=== PATIENT | male | born 1975 | race Caucasian/White ===

== ENCOUNTER 2019-02-26 07:05 | Outpatient (RCR) | payer SELFPAY ==
--- NOTE | 2019-01-15 09:11 | WPDWOUNDNOTE ---
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 Alexandra. Ulcers on the medial/lateral foot are now completely healed. Now with new wound on the medial dorsal aspect of the hallux with 50% red/pink wound bed and 50% slough. Mild serousanguinous drainage. No signs of acute infection. Wound history: See above Wound approximation: No Wound width: 0.3cm Wound length: 0.3cm Wound depth: 0.3cm Drainage: Mild serousanguinous drainage Surrounding tissue appearance: Mild redness. No warmth/No swelling. Tunneling: No tunneling Percentage granulation tissue: 50% red/pink 50% slough Treatment/Procedures: Debridement performed under sterile conditions with #15 blade knife, tolerated well. Dressings: Begin daily dressing changes with Santyl and foam. Cover dry Assessment and Plan Assessment and plan (1) Diabetic foot ulcer: Qualifiers: Diabetes mellitus type: type 2 Diabetic foot ulcer location: toe Laterality: left Non-pressure ulcer stage: limited to breakdown of skin Qualified Code(s): E11.621 - Type 2 diabetes mellitus with foot ulcer; L97.521 - Non-pressure chronic ulcer of other part of left foot limited to breakdown of skin Code(s): E11.621 - Type 2 diabetes mellitus with foot ulcer; L97.509 - Non-pressure chronic ulcer of other part of unspecified foot with unspecified severity Status: Acute Assessment and Plan: [facility] wound clinic evaluation 6 months s/p left 5th ray amputation and subsequent medial/lateral foot ulcers. Medial/lateral foot ulcers remain completely healed. New ulcer on the medial aspect of the dorsal hallux noted today. Wound measures 0.3x0.3x0.3cm, 50% red/pink wound bed, 50% yellow/slough. Ulcer debrided under sterile conditions with #15 blade knife, tolerated well. Begin daily dressing changes with Santyl and Foam, dry dressing. Patient fit with post op shoe. Modification to custom orthotics/depth shoes given for [employer] in [place]. Follow up in 1 week. Debridement/Burn/Wound Pre Procedure Consent was obtained, Procedures/risks were explained, Questions were answered, Correct patient identified and Correct side and site confirmed Episode Return Visit Area was prepped and draped using sterile technique?: Yes Ulcer/Wound Debridement, skin, first 20 sq cm or less: Yes Dressing Applied antibiotic ointment Post Procedure Patient tolerated the procedure well?: Tolerated procedure well
--- NOTE | 2019-01-22 09:29 | WPDWOUNDNOTE ---
Wound Care Note Date/Time: 01/22/19 09:29 History: [facility] wound clinic visit for follow up of medial/lateral foot ulcers s/p 5th ray amputation on 06/26/[address] Alexandra. Ulcers on the medial/lateral foot remain completely healed. Wound on the medial dorsal aspect of the hallux noted last week now with 100% red/pink wound bed. Mild serousanguinous drainage. No signs of acute infection. Wound approximation: No Percentage granulation tissue: 0.5x0.5x0.2cm, 100% red/pink. Dressings: Transition to silver gel, cover with mepilex foam and cover dry. Assessment and Plan Assessment and plan (1) Diabetic foot ulcer: Qualifiers: Diabetic foot ulcer location: toe Diabetes mellitus type: type 2 Laterality: left Non-pressure ulcer stage: limited to breakdown of skin Qualified Code(s): E11.621 - Type 2 diabetes mellitus with foot ulcer; L97.521 - Non-pressure chronic ulcer of other part of left foot limited to breakdown of skin Code(s): E11.621 - Type 2 diabetes mellitus with foot ulcer; L97.509 - Non-pressure chronic ulcer of other part of unspecified foot with unspecified severity Status: Acute Assessment and Plan: [facility] wound clinic evaluation 6 months s/p left 5th ray amputation and subsequent medial/lateral foot ulcers. Medial/lateral foot ulcers remain completely healed. New ulcer on the medial aspect of the dorsal hallux noted today. Wound measures 0.3x0.3x0.3cm, 50% red/pink wound bed, 50% yellow/slough. Ulcer debrided under sterile conditions with #15 blade knife, tolerated well. Begin daily dressing changes with Santyl and Foam, dry dressing. Patient fit with post op shoe. Modification to custom orthotics/depth shoes given for [employer] in [place]. Follow up in 1 week. Exam Const Constitutional General: cooperative Nutritional Appearance: overweight Orientation/consciousness: oriented x3 Constitutional Limitations: no limitations HENMT Head: normal to inspection Ears: hearing grossly normal bilaterally General nose exam: external nose normal Face and sinus: normal facial exam Mouth: moist mucous membranes Teeth and gingiva: dentition normal Eyes General: appearance normal, both eyes and all related structures Pupils: Yes PERRL EOM: EOM intact bilaterally Neck Neck: Yes normal visual inspection Chest Chest palpation & inspection: normal inspection of the chest Resp Effort & Inspection: normal respiratory effort and able to speak in complete sentences Cardio Jugular venous distension: no JVD Diabetic Foot Exam Date of last foot exam: 01/15/19 Visual inspection of feet performed: Yes Inspection: Yes foot deformity Deformity: pes planus and deformed toes and Yes ulceration (Ulcer on the dorsal aspect of the hallux 0.5x0.5x0.2, 100% red/pink wound b) Peripheral pulse exam performed: Yes Pulses: L dorsalis pedis pulse: diminished, R dorsalis pedis pulse: diminished, L posterior tibial pulse: diminished and R posterior tibial pulse: diminished Sensory exam performed: Yes Monofilament Exam: L medial mid foot: decreased, L lateral mid-foot: decreased, L mid-heel: decreased and L mid-dorsum foot: decreased Diabetic foot care education: provided Review of Systems Const Reports no additional constitutional complaints, Denies excessive sweating, Denies fever(s) and Denies weight gain Eyes Reports no additional eye complaints and Denies change in vision ENT Reports system reviewed and no additional complaints, except as documented and Reports hearing normal Card Denies chest pain, Denies diaphoresis, Denies leg ulcers and Denies dyspnea on exertion Resp Reports no additional respiratory complaints, Denies cough and Denies dyspnea on exertion GI Reports no additional gastrointestinal complaints, Denies abdominal pain, Denies constipation, Denies nausea and Denies vomiting Reports no additional male genitourinary complaints, Denies hematuria and Denies urinary frequency Musc Reports no additional musculoskeletal c
--- NOTE | 2019-02-12 08:53 | WPDWOUNDNOTE ---
Wound Care Note Date/Time: 02/12/19 08:53 [facility] wound clinic visit for follow up of medial/lateral foot ulcers s/p 5th ray amputation on 06/26/[address] Alexandra. Ulcers on the medial/lateral foot remain completely healed. Wound on the medial dorsal aspect of the hallux improving, see notes. Assessment and Plan Assessment and plan (1) Diabetic foot ulcer: Qualifiers: Diabetic foot ulcer location: toe Diabetes mellitus type: type 2 Laterality: left Non-pressure ulcer stage: limited to breakdown of skin Qualified Code(s): E11.621 - Type 2 diabetes mellitus with foot ulcer; L97.521 - Non-pressure chronic ulcer of other part of left foot limited to breakdown of skin Code(s): E11.621 - Type 2 diabetes mellitus with foot ulcer; L97.509 - Non-pressure chronic ulcer of other part of unspecified foot with unspecified severity Status: Acute Assessment and Plan: [facility] wound clinic evaluation 7 months s/p left 5th ray amputation and subsequent medial/lateral foot ulcers. Medial/lateral foot ulcers remain completely healed. Ulcer on the medial aspect of the dorsal hallux now measures 0.2x0.2x0.1cm, 100% red/pink wound bed. Continue daily dressing changes with Silver gel and Foam, dry dressing. Follow up in 2 weeks. Exam Const Constitutional General: cooperative Nutritional Appearance: overweight Orientation/consciousness: oriented x3 Constitutional Limitations: no limitations HENMT Head: normal to inspection Ears: hearing grossly normal bilaterally General nose exam: external nose normal Face and sinus: normal facial exam Mouth: moist mucous membranes Teeth and gingiva: dentition normal Eyes General: appearance normal, both eyes and all related structures Pupils: Yes PERRL EOM: EOM intact bilaterally Neck Neck: Yes normal visual inspection Chest Chest palpation & inspection: normal inspection of the chest Resp Effort & Inspection: normal respiratory effort and able to speak in complete sentences Cardio Jugular venous distension: no JVD Extrem Right lower extremity: foot Details: motor-sensory exam (neuropathy at baseline ) and other (pain with ingrown toenail of hallux); Negative for normal capillary refill, tenderness, warmth and edema Left lower extremity: foot Details: vascular exam (decreased pedal pulses ) Details: abnormal capillary refill (sluggish ) and motor-sensory exam (neuropathy at baseline ) Diabetic Foot Exam Date of last foot exam: 02/12/19 Visual inspection of feet performed: Yes Inspection: Yes foot deformity Deformity: pes planus and deformed toes and Yes ulceration (Ulcer on the dorsal aspect of the hallux 0.2x0.2x0.1cm) Peripheral pulse exam performed: Yes Pulses: L dorsalis pedis pulse: diminished, R dorsalis pedis pulse: diminished, L posterior tibial pulse: diminished and R posterior tibial pulse: diminished Sensory exam performed: Yes Monofilament Exam: L medial mid foot: decreased, L lateral mid-foot: decreased, L mid-heel: decreased and L mid-dorsum foot: decreased Diabetic foot care education: provided
--- NOTE | 2019-02-26 08:43 | WPDWOUNDNOTE ---
Wound Care Note Date/Time: 02/26/19 08:43 [facility] wound clinic visit for follow up of medial/lateral foot ulcers s/p 5th ray amputation on 06/26/[address] Alexandra. Ulcers on the medial/lateral foot remain completely healed. Wound on the medial dorsal aspect of the hallux healed, see notes. Assessment and Plan Assessment and plan (1) Diabetic foot ulcer: Qualifiers: Diabetic foot ulcer location: toe Diabetes mellitus type: type 2 Laterality: left Non-pressure ulcer stage: limited to breakdown of skin Qualified Code(s): E11.621 - Type 2 diabetes mellitus with foot ulcer; L97.521 - Non-pressure chronic ulcer of other part of left foot limited to breakdown of skin Code(s): E11.621 - Type 2 diabetes mellitus with foot ulcer; L97.509 - Non-pressure chronic ulcer of other part of unspecified foot with unspecified severity Status: Acute Assessment and Plan: [facility] wound clinic evaluation approximately 7 months s/p left 5th ray amputation and subsequent medial/lateral foot ulcers. Medial/lateral foot ulcers remain completely healed. Ulcer on the medial aspect of the dorsal hallux completely closed. Continue Foam x1 week. Monitor feet daily for new ulcerations. Continue use of custom orthotics/depth shoes. Follow up in 1 month for foot check Exam Const Constitutional General: cooperative Nutritional Appearance: overweight Orientation/consciousness: oriented x3 Constitutional Limitations: no limitations HENMT Head: normal to inspection Ears: hearing grossly normal bilaterally General nose exam: external nose normal Face and sinus: normal facial exam Mouth: moist mucous membranes Teeth and gingiva: dentition normal Eyes General: appearance normal, both eyes and all related structures Pupils: Yes PERRL EOM: EOM intact bilaterally Neck Neck: Yes normal visual inspection Chest Chest palpation & inspection: normal inspection of the chest Resp Effort & Inspection: normal respiratory effort and able to speak in complete sentences Cardio Jugular venous distension: no JVD Extrem Right lower extremity: foot Details: normal capillary refill, vascular exam Details: dorsalis pedis pulse present and other (ingrown toenail hallux- improving ) and motor-sensory exam Details: two-point discrimination abnormal Location: all toes and light-touch abnormal Location: all toes; Negative for tenderness Left lower extremity: foot Details: vascular exam Details: dorsalis pedis pulse present and motor-sensory exam two-point discrimination abnormal and light-touch abnormal; Negative for tenderness and warmth Other: No open ulcerations bilaterally Diabetic Foot Exam Date of last foot exam: 02/26/19 Visual inspection of feet performed: Yes Inspection: Yes foot deformity and Yes ulceration (Ulcer on the dorsal aspect of the hallux now completely closed ) Peripheral pulse exam performed: Yes Pulses: L dorsalis pedis pulse: diminished, R dorsalis pedis pulse: diminished, L posterior tibial pulse: diminished and R posterior tibial pulse: diminished Sensory exam performed: Yes Monofilament Exam: L medial mid foot: decreased, L lateral mid-foot: decreased, L mid-heel: decreased and L mid-dorsum foot: decreased Diabetic foot care education: provided Review of Systems Const Reports no additional constitutional complaints, Denies excessive sweating, Denies fever(s) and Denies weight gain Eyes Reports no additional eye complaints and Denies change in vision ENT Reports system reviewed and no additional complaints, except as documented and Reports hearing normal Card Denies chest pain, Denies diaphoresis, Denies leg ulcers and Denies dyspnea on exertion Resp Reports no additional respiratory complaints, Denies cough and Denies dyspnea on exertion GI Reports no additional gastrointestinal complaints, Denies abdominal pain, Denies constipation, Denies nausea and Denies vomiting Reports no additional male genitourinary complaints, Denies hematuria and Denie
== END 2019-04-15 23:59 | disposition home or self-care (01) ==
LOC: ANHWOC 07:05
PROVIDERS: Referring Provider Nurse Practitioner Family; Visit Provider Nurse Practitioner Family
DX: E11.621 Type 2 diabetes mellitus with foot ulcer (principal); L97.529 Non-pressure chronic ulcer of other part of left foot with unspecified severity; Z89.422 Acquired absence of other left toe(s)
CPT/HCPCS: 97602; 99212; G0463

== ENCOUNTER 2019-12-07 17:25 | Outpatient (CLI) | payer OTHER, SELFPAY ==
--- NOTE | ~2019-12-07 | MR_ITS ---
EXAMINATION: MR knee RT wo con DATE: 12/07/2019 19:08 INDICATION: Right knee pain TECHNIQUE: Magnetic resonance imaging (MRI) of the right knee was performed without intravenous contr ast. Sequences included coronal PD-weighted FSE, coronal PD-weighted FS FSE, sagittal T2-weighted FS E, sagittal PD-weighted FS FSE and axial PD weighted fat saturated FSE. COMPARISON: Right knee radiographs dated 11/11/2019 FINDINGS: Medial compartment: Medial meniscus is normal. Deep chondral fissuring without degenerative subchondral changes along the anterior to central weightbearing medial femoral condyle. Lateral compartment: Lateral meniscus is normal. Articular cartilage is normal. Patellofemoral compartment: Deep chondral ulceration at the mid inferior trochlear groove and medial side of the lateral patellar facet with subtle underlying subchondral cortical irregularity and mild subarticular edema. Partial- thickness chondral fissure without degenerative subchondral changes at the lateral patellar facet. Ligaments and tendons: Anterior and posterior cruciate ligaments are normal. The medial collateral ligament and fibular ibis ateral ligament complex are normal. The extensor mechanism is normal. The visualized medial and later al hamstring tendons as well as the iliotibial band are normal. Fluid: Physiologic amount of fluid in the joint space. No loose osteochondral bodies identified. Small amoun t of prepatellar fluid most likely residual small hematoma/seroma related to patellar fracture althou gh differential would include prepatellar bursitis. Osseous/other: There is small amount of residual fluid signal extending along a sagittally oriented nondisplaced fra cture plane at the lateral aspect of the patella. No pathologic marrow replacing process. IMPRESSION: 1. Mild residual edema along a subacute nondisplaced fracture at the lateral aspect of the patella. 2. Mild medial and patellofemoral osteoarthritis with moderate to high-grade chondromalacia along the weightbearing medial femoral condyle and lateral patellar facet and high-grade chondromalacia at the trochlear groove and lateral trochlea. 3. Mild prepatellar bursitis. Reviewed, dictated and finalized at location A. IMPRESSION: 1. Mild residual edema along a subacute nondisplaced fracture at the lateral as pect of the patella. 2. Mild medial and patellofemoral osteoarthritis with moderate to high-grade ch ondromalacia along the weightbearing medial femoral condyle and lateral patella r facet and high-grade chondromalacia at the trochlear groove and lateral troch grace. 3. Mild prepatellar bursitis.
== END 2019-12-07 17:26 | disposition home or self-care (01) ==
PROVIDERS: PCP Family Medicine; Visit Provider Nurse Practitioner Family
DX: M70.41 Prepatellar bursitis, right knee (principal)
CPT/HCPCS: 73721

== ENCOUNTER 2020-01-07 16:12 | Emergency (ER) | payer OTHER, SELFPAY ==
--- NOTE | ~2020-01-07 | XR_ITS ---
XR knee LT 3V 01/07/2020 17:41 INDICATION: Left knee pain after fall PROCEDURE: 3 views left knee COMPARISON: No prior studies for comparison. FINDINGS: Fracture, dislocation or subluxation is not identified. Mild osteoarthritis. No significant joint effusion. The soft tissues appear within normal limits. No foreign bodies are identified. IMPRESSION: 1: NO ACUTE BONE OR JOINT ABNORMALITY IDENTIFIED. Reviewed, dictated and finalized at location A.
--- NOTE | ~2020-01-07 | XR_ITS ---
XR ankle RT min 3V, XR ankle LT min 3V 01/07/2020 17:41 (accession [id number]), 01/07/2020 17:40 (accession [id number]) Indication: Bilateral ankle pain after fall Procedure: 4 views of each ankle Comparison: No prior studies for comparison. Findings: Prominent degenerative calcaneal enthesophytes. There are loose bodies superior to the left talonavicular joint consistent with remote trauma or degenerative change. There is heterotopic ossif ication dorsal to the left tibia and fibula. No acute fracture or traumatic malalignment. Ankle morti se intact bilaterally. There is mild right lateral soft tissue swelling. Impression: 1: No acute fracture. Reviewed, dictated and finalized at location A. Impression: 1: No acute fracture. Impression: 1: No acute fracture.
--- NOTE | ~2020-01-07 | XR_ITS ---
XR hand RT min 3V 01/07/2020 17:40 INDICATION: Right hand pain after fall PROCEDURE: 3 views right hand COMPARISON: No prior studies for comparison. FINDINGS: There is a possible nondisplaced longitudinal fracture fifth middle phalanx.. The soft tiss ues appear within normal limits. No foreign bodies are identified. IMPRESSION: 1: Possible nondisplaced longitudinal fracture fifth middle phalanx, seen on oblique image only. Reviewed, dictated and finalized at location A. IMPRESSION: 1: Possible nondisplaced longitudinal fracture fifth middle phalanx, seen on ob lique image only.
--- NOTE | ~2020-01-07 | XR_ITS ---
XR knee RT 3V 01/07/2020 17:40 INDICATION: Right knee pain after fall PROCEDURE: 12/09/2019 COMPARISON: No prior studies for comparison. FINDINGS: Fracture, dislocation or subluxation is not identified. Mild osteoarthritis of the right kn ee. No significant joint effusion. The soft tissues appear within normal limits. No foreign bodies a re identified. IMPRESSION: 1: NO ACUTE BONE OR JOINT ABNORMALITY IDENTIFIED. Reviewed, dictated and finalized at location A.
[2020-01-07 16:14] VITALS: BP 147/104; PULSE 117; RESP 18; TEMP 36; O2SAT 99
--- NOTE | 2020-01-07 17:39 | ED.GENADULT ---
HPI - General Adult General Chief complaint: Extremity Injury, Lower Stated complaint: fall Time Seen by Provider: 01/07/20 16:29 Source: patient and family Mode of arrival: ambulatory Limitations: no limitations History of Present Illness HPI narrative: Patient is a 44-year-old male who presents to emergency department for evaluation of right knee injury that occurred after tripping and falling onto the right knee after rolling the left ankle patient is currently rehabbing for right patellar fracture followed by Dr. Alexandra patient on arrival to emergency department does not appear to be on pain notes he is slightly uncomfortable worse with activity and movement patient with history of peripheral neuropathy denies head injury syncope loss of cough patient does not wish for pain medication at this time Related Data Home Medications Medication Instructions Recorded Confirmed aspirin [Aspirin Low Dose] 81 mg PO DAILY 01/05/19 12/09/19 atorvastatin 40 mg PO DAILY 01/05/19 12/09/19 famotidine [Pepcid] 20 mg PO BID 01/05/19 12/09/19 gabapentin 300 mg PO TID 01/05/19 12/09/19 insulin detemir U-100 45 unit SUBCUT HS 01/05/19 12/09/19 losartan 50 mg PO DAILY 01/05/19 12/09/19 magnesium oxide 400 mg PO DAILY 01/05/19 12/09/19 metformin 500 mg PO BID 01/05/19 12/09/19 Allergies Allergy/AdvReac Type Severity Reaction Status Date / Time latex Allergy Unknown Urticaria Verified 01/07/20 16:17 lisinopril Allergy Unknown unknown Verified 01/07/20 16:17 Review of Systems Review of Systems: All systems reviewed & are unremarkable except as noted in HPI and below PMFSH Past Medical History Medical History (Updated 01/07/20 @ 18:26 by Usman Obregon PA-C) Anxiety Arthritis Depression Diabetes Last A1C as of 11/11/19: 8.1 Diabetic foot ulcer Edema of both feet Headache Hearing loss High cholesterol 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 Hypertension Injury of right knee Kidney disease Left knee pain Nausea & vomiting Neuropathy Patella fracture Poor balance Right knee pain Sleep apnea Sleep disorder Vision abnormalities Wears glasses reading Weight gain Family History Family History Other Diabetes mellitus Family history of arthritis Family history of cardiovascular disease Family history of malignant neoplasm Hypertension Social History Social History Smoking status: Former smoker Smoking end date: 03/10/18 Alcohol intake: never Exam Narrative: Exam Narrative: GENERAL: Well-appearing, well-nourished, and in no acute distress. HEAD: Normocephalic, atraumatic. EYES: PERRLA and EOMI. ENT: Nares clear, no rhinorrhea or epistaxis. Mucous membranes moist. EXTREMITIES: Normal range of motion. No edema. Tenderness of the anterior right knee with abrasion and swelling. No tenderness of the bilateral ankles or left knee. SKIN: Warm, dry, no rash. NEURO: No focal deficits. Alert and oriented x3. Cranial nerves II through XII grossly intact. Neurovascularly intact PSYCH: Normal mood and affect. Course Course Emergency Course: Patient in the room in no distress made aware of skeletal imaging will follow with orthopedic surgery Vital Signs Vital signs: Vital Signs Temperature 96.8 F L 01/07/20 16:14 Pulse Rate 117 H 01/07/20 16:14 Respiratory Rate 18 01/07/20 16:14 Blood Pressure 147/104 H 01/07/20 16:14 Pulse Oximetry 99 01/07/20 16:14 Temperature 96.8 F L 01/07/20 16:14 Pulse Rate 117 H 01/07/20 16:14 Respiratory Rate 18 01/07/20 16:14 Blood Pressure 147/104 H 01/07/20 16:14 Pulse Oximetry 99 01/07/20 16:14 Medical Decision Making MDM Narrative Medical decision making narrative: Patients injury or pain is consistent with musculoskeletal etiology. No signs of neurological or vascular compromise on exam. Compartments and tisues are sof
--- NOTE | 2020-01-15 10:38 | PC.NURSE ---
LATE ENTRY::: Finger splint placed on right middle finger by robotics technician on 01/07/20
== END 2020-01-07 18:47 | disposition home or self-care (01) ==
PROVIDERS: Emergency Provider Emergency Medicine; PCP Family Medicine
DX: S62.656A Nondisplaced fracture of middle phalanx of right little finger, initial encounter for closed fracture (principal); S89.92XA Unspecified injury of left lower leg, initial encounter; S89.91XA Unspecified injury of right lower leg, initial encounter; E78.00 Pure hypercholesterolemia, unspecified; E11.42 Type 2 diabetes mellitus with diabetic polyneuropathy; I10 Essential (primary) hypertension; G47.30 Sleep apnea, unspecified; M19.90 Unspecified osteoarthritis, unspecified site; Z87.891 Personal history of nicotine dependence; Z79.4 Long term (current) use of insulin; Z79.82 Long term (current) use of aspirin; W01.0XXA Fall on same level from slipping, tripping and stumbling without subsequent striking against object, initial encounter
CPT/HCPCS: 29130; 73130; 73562; 73610; 99284

== ENCOUNTER 2020-02-22 11:54 | Outpatient (CLI) | payer OTHER, SELFPAY ==
[2020-02-22 14:05] LABS: Vitamin D 25 Hydroxy 27.5 ng/mL
[2020-02-22 16:14] LABS: T4 Thyroxine 7.05 ug/dL (5.53-11.0)
[2020-02-22 16:28] LABS: Total Triiodothyronine (T3) 1.14 NG/ML (0.97-1.69)
[2020-02-22 17:02] LABS: Folic Acid 15.6 ng/mL (2.76->20)
== END 2020-02-22 11:55 | disposition home or self-care (01) ==
PROVIDERS: PCP Family Medicine
DX: G62.9 Polyneuropathy, unspecified (principal)
CPT/HCPCS: 36415; 82306; 82607; 82746; 84436; 84443; 84480

== ENCOUNTER 2020-03-04 11:43 | Inpatient (IN) | payer OTHER, SELFPAY ==
--- NOTE | ~2020-03-04 | MR_ITS ---
EXAMINATION: MR foot RT wo/w con DATE: 03/05/2020 12:46 INDICATION: Diabetic wounds and swelling at the right foot. TECHNIQUE: Magnetic resonance imaging (MRI) of the right fore/mid foot was performed without and with 20 mL Multihance intravenous contrast. Sequences included axial, sagittal and coronal T1-weighted FS E and T2-weighted FS FSE, axial T1-weighted FS FSE and postcontrast axial and coronal T1-weighted FS FSE. COMPARISON: Radiographs dated 03/04/2020 FINDINGS: Bone alignment is normal. Moderate osteoarthritis at the first metatarsophalangeal and first interpha langeal joints, both with associated small regions of subarticular marrow edema and enhancement. Beryl ow signal is otherwise normal throughout with no fracture, osteolysis or other pathologic marrow repl acing process. Additional mild polyarticular osteoarthritis at the remaining tarsal metatarsal, metat arsophalangeal and interphalangeal joints. Physiologic amount fluid in the joint spaces. No abscess o r other abnormal fluid collections. Prominent subcutaneous edema over the dorsum of the foot. Fatty a trophy and increased fluid signal throughout the intrinsic musculature of the foot likely related to diabetic neuropathy. The flexor and extensor tendons appear normal. The Lisfranc ligament and collate ral ligament complex at the metatarsophalangeal and interphalangeal joints are normal. IMPRESSION: 1. No abscess or osteomyelitis. 2. Polyarticular osteoarthritis, moderate at the first metatarsophalangeal and first interphalangeal joints. Reviewed, dictated and finalized at location A. DEPARTMENT MANAGER
--- NOTE | ~2020-03-04 | XR_ITS ---
XR foot LT min 3V 03/04/2020 15:20 Indication: Infection of the left foot. History of amputated toes. Diabetes. Procedure: 4 views left foot Comparison: 06/23/2018 Findings: Status post amputation of the fifth toe at the metatarsal neck. There is soft tissue swelli ng overlying the fifth toe. There is osteoarthritis of the first MTP and IP joints. Osteopenia. Lisfr anc joint is intact there are vascular calcifications. Prominent degenerative calcaneal spurs. Impression: 1: No acute bone or joint abnormality. If there is concern for osteomyelitis, correlation with MRI or three-phase bone scan recommended. Reviewed, dictated and finalized at location A. SPORT TANK TECHNICIAN Impression: 1: No acute bone or joint abnormality. If there is concern for osteomyelitis, c orrelation with MRI or three-phase bone scan recommended.
--- NOTE | ~2020-03-04 | XR_ITS ---
XR foot RT min 3V 03/04/2020 15:20 Indication: Infection. History of foot ulcers. Procedure: 4 views right foot Comparison: No prior studies for comparison. Findings: No acute fracture, subluxation or dislocation. There is osteoarthritis of the first MTP and IP joints. Lisfranc joint is intact. No erosive changes identified. Vascular calcifications are pres ent. There is soft tissue swelling dorsal aspect of the metatarsal bones. Impression: 1: No acute bone or joint abnormality. If there is concern for osteomyelitis, correlation with MRI or three-phase bone scan recommended. Reviewed, dictated and finalized at location A. ERCIAL DECORATOR Impression: 1: No acute bone or joint abnormality. If there is concern for osteomyelitis, c orrelation with MRI or three-phase bone scan recommended.
--- NOTE | ~2020-03-04 | US_ITS ---
EXAMINATION:US venous doppler LE RT INDICATION:Leg edema TECHNIQUE: Multiple grayscale, color flow and Doppler images of the right lower extremity deep venous systems were obtained and reviewed. COMPARISON:No prior studies for comparison. FINDINGS: The common femoral, superficial femoral and popliteal veins demonstrate normal respiratory variation, augmentation and compressibility. Color flow is also seen within the posterior tibial, pe roneal, greater saphenous and profunda veins. IMPRESSION: 1: No lower extremity deep venous thrombosis. Reviewed, dictated and finalized at location A. IDENT [place]
--- NOTE | ~2020-03-04 | US_ITS ---
EXAMINATION: US art doppler w press LE DATE: 03/05/2020 15:49 WIND DEVELOPMENT DIRECTOR INDICATION: Diabetic foot wound. TECHNIQUE: Segmental pressures and plethysmographic and Doppler waveforms of the brachial and lower e xtremity arteries were obtained. COMPARISON: None. FINDINGS: Right and left brachial artery pressures of 151 mm Hg and 154 mm Hg, respectively, are concordant (no rmal difference <= 30 mmHg). The right ankle-brachial index (CLINTON) is 0.72 (normal >= 0.9-1.0). The right great toe-brachial index (TBI) is 1.05 (normal >= 0.60). The right lower extremity segmental pressure gradients are increased below the right knee (normal gradients <= 20-30 mmHg between adjacent levels on the same leg or the s kyra levels on the two legs). Arterial Doppler waveforms are biphasic. The left CLINTON is 0.95. The left TBI is 0.79 . The left lower extremity segmental pressure gradients ar e increased below the left knee. Arterial Doppler waveforms are biphasic. IMPRESSION: 1. Diminished right ankle brachial index consistent with mild peripheral arterial disease. Reviewed, dictated and finalized at location A. DEVELOPMENT DIRECTOR IMPRESSION: 1. Diminished right ankle brachial index consistent with mild peripheral arteri al disease.
[2020-03-04 11:57] VITALS: BP 149/89; PULSE 104; RESP 16; TEMP 36.7; O2SAT 97
--- NOTE | 2020-03-04 14:21 | ED.WOUNDLAC ---
HPI - Wound/Laceration General Chief Complaint: Wound/Laceration Stated Complaint: foot wounds Time Seen by Provider: 03/04/20 14:21 History of Present Illness HPI narrative: 44 yo male w/ diabetic neuropathy presents to the ED for wounds. He has wounds to multiple toes on the feet bilaterally. First noticed them last night and they have significantly worsened since that time. He says that his checks his feet daily. He reports good glucose control recently. He has severe neuropathy of the feet. No systemic symptoms. h/o left 5th toe amputation. Related Data Home Medications Medication Instructions Recorded Confirmed atorvastatin 40 mg PO DAILY 01/05/19 03/04/20 gabapentin 300 mg PO TID 01/05/19 03/04/20 insulin detemir U-100 50 unit SUBCUT DAILY 01/05/19 03/04/20 losartan 50 mg PO DAILY 01/05/19 03/04/20 Allergies Allergy/AdvReac Type Severity Reaction Status Date / Time latex Allergy Unknown Urticaria Verified 03/04/20 17:38 lisinopril Allergy Unknown unknown Verified 03/04/20 17:38 piperacillin Allergy Chills Verified 03/04/20 17:38 Review of Systems Review of Systems: All systems reviewed & are unremarkable except as noted in HPI and below Constitutional: Constitutional: Denies fever(s) Cardiovascular: Cardiovascular: Denies chest pain Respiratory: Respiratory: Denies dyspnea Gastrointestinal: Gastrointestinal: Denies nausea and Denies vomiting Musculoskeletal: Musculoskeletal: Denies back pain Integumentary/Breasts: Skin/Breast: Reports skin ulcer Neurologic: Reports numbness and Denies weakness [facility] Past Medical History Medical History Amputation of fifth toe of left foot Anxiety Arthritis Depression Diabetic foot ulcer (03/04/20) Diabetic peripheral neuropathy Gastroesophageal reflux disease Hearing loss History of kidney stones Hyperlipidemia Hypertension (Unknown) Insulin dependent type 2 diabetes mellitus Hemoglobin A1c was 8.1% on 11/11/2019. Kidney disease Obstructive sleep apnea Noncompliant with treatment. Osteomyelitis Right patella fracture Surgical History Surgical History 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 History of extraction of renal calculus Family History Family History Mother Acute myocardial infarction Diabetes mellitus Cerebrovascular accident Hypertension Father Acute myocardial infarction Diabetes mellitus Cerebrovascular accident Hypertension Grandparent Diabetes mellitus Colon cancer Hypertension Grandparent Congestive heart failure Other Family history of arthritis Family history of cardiovascular disease Family history of malignant neoplasm Social History Social History Social History: Surrogate decision maker: Ata Workman, . Code status: Full code. Smoking packs per day: 1.5 Smoking cigarettes per day: 30.0 Years smoked: 20 Smoking pack-years: 30.00 Smoking status: Former smoker Tobacco type: cigarettes Smoking end date: 03/10/18 Alcohol intake: never Substance use: never Substance use type: does not use Additional living arrangements comments: Lives in [place] with his . Additional occupation/education comments: Works at the [employer]. Gender identity (if verbalized by the patient): Male Spiritual care concerns: No Exam Const: General: no acute distress and alert Orientation/consciousness: patient oriented x3 HENMT: Head: normal to inspection Neck: Neck: normal visual inspection and no lymphadenopathy Chest: Chest palpation & inspection: no tenderness Resp: Effort & Inspection: normal respiratory effort Auscultation: clear to auscultation bilaterally, no rales, no rhonchi and no wheezes Cardio: Jugular
[2020-03-04 14:48] LABS: Basophils Percent Auto 0.5 % (0.2-1.2); Eosinophils Absolute Auto 0.3 K/mm3 (0-0.3); Eosinophils Percent Auto 3.6 % (0-4.4); Hematocrit 43.5 % (42.0-52.0); Hemoglobin 14.1 g/dL (14.0-18.0); Immature Granulocyte Absolute 0.02 K/mm3 (0.00-0.031); Immature Granulocyte Percent A 0.2 % (0-0.5); Lymphocytes Absolute Auto 2.24 K/mm3 (0.9-3.2); Lymphocytes Percent Auto 26.8 % (18.3-44.2); Mean Corpuscular HGB Conc 32.4 g/dl (32-36); Mean Corpuscular Hemoglobin 29.1 pg (26-34); Mean Corpuscular Volume 89.9 fl (80-100); Mean Platelet Volume 9.6 fl (7.4-10.4); Monocytes Absolute Auto 0.7 K/mm3 (0.1-0.6); Monocytes Percent Auto 8.7 % (2.6-8.5); Neutrophils Percent Auto 60.2 % (45.5-73.1); Platelet Count Result 254 k/mm3 (150-375); Red Blood Count 4.84 M/mm3 (4.6-6.20); Red Cell Distribution Width 12.6 % (11.5-14.5); White Blood Count 8.4 K/mm3 (4.5-10.0)
[2020-03-04 14:57] LABS: INR 0.9; Prothrombin Time 12.6 Seconds (11.1-14.7)
[2020-03-04 14:58] LABS: Partial Thromboplastin Time 25.8 SECONDS (22.3-36.8)
[2020-03-04 14:59] LABS: Lactic Acid Reflex 0.8 mmol/L (0.7-2.1)
[2020-03-04 15:05] LABS: Alanine Aminotransferase 30 U/L (4-50); Albumin Level 3.8 g/dL (3.5-5.1); Alkaline Phosphatase 102 U/L (38-126); Anion Gap 7 mmol/L (8-16); Aspartate Amino Transferase 30 U/L (17-59); Bilirubin,Total 0.5 mg/dL (0.2-1.3); Blood Urea Nitrogen 30 mg/dL (9-20); CRP 1.6 mg/dL (<1.0); Calcium 9.2 mg/dL (8.4-10.2); Carbon Dioxide 33 mmol/L (22-30); Chloride 102 mmol/L (98-107); Estimated CRCL calculation 102 ml/min; Estimated Glomerular Filt Rate > 60; Glucose 53 mg/dL (75-110); Potassium 4.2 mmol/L (3.4-5.0); Sodium 142 mmol/L (137-145)
[2020-03-04 15:10] LABS: Glucose Point of Care 55 (65-105)
[2020-03-04 15:10] LABS: Erythrocyte Sedimentation Rate 35 mm/hr (0-20)
--- NOTE | 2020-03-04 15:18 | PC.NURSE ---
Patient blood glucose noted to be 55, verbal order received to give food/drink to patient.
[2020-03-04 15:53] VITALS: BP 142/92; PULSE 98; RESP 18; O2SAT 98
[2020-03-04 16:52] VITALS: BP 142/98; PULSE 98; RESP 18; O2SAT 98
[2020-03-04 17:08] VITALS: BMI 39.0
--- NOTE | 2020-03-04 17:08 | PC.NURSE ---
This patient, King Workman, was admitted to Medical Room 251-. Patient/family oriented to hospital policies and general routines including ID bracelet, bed and alarms, visiting hours, pain management, procedures, bathroom and other care routines, personal items, smoking policy, room service/diet, and visiting hours. Information on how to activate the Rapid Response Team has been discussed. Patient/Family are encouraged to report perceived risks to care and to ask questions if they do not understand what they are told or what they should do.
[2020-03-04 17:30] VITALS: BP 161/89; PULSE 98; RESP 18; TEMP 36.6; O2SAT 99
--- NOTE | 2020-03-04 19:00 | PM.IMHP ---
H&P: HPI History of Present Illness Date/Time: 03/04/20 19:00 Chief Complaint: Toe wounds. Narrative: King Workman is a 44-year-old male with insulin-dependent type 2 diabetes mellitus, hypertension, and hyperlipidemia presented to the emergency department earlier today from home with complaints of bilateral toe wounds. Patient has a history of diabetic foot wounds and osteomyelitis requiring left 5th toe amputation in June 2018. The patient tells me that his monitors his feet daily, and that today she noticed that his right 1st toe was discolored and there were several areas on multiple toes on both feet with purulent drainage. Both the patient and his are adamant that these were not present yesterday. He suffers from severe peripheral neuropathy and thus he has not had any pain. He does not walk around barefoot and does not recall stubbing or hurting his toe in any way. No fever, chills, or sweats. No nausea or vomiting. He believes his diabetes is well controlled and in fact he has been having some episodes of mild hypoglycemia. Review of Systems Review of Systems: Narrative: Twelve systems were reviewed with pertinent positives and negatives as per HPI. He has poor balance due to his neuropathy and walks with a cane, sometimes a walker. He had a fall at work several months ago and it sounds as though he had a right patellar fracture for which he has completed physical therapy. He has recently been referred to a neurologist in [place] for his severe neuropathy. No blurry vision, polydipsia, or polyuria. Except as documented, all other systems were reviewed and are negative. [facility] Past Medical History Medical History (Updated 03/04/20 @ 22:11 by Zuri Peterson PA-C) Amputation of fifth toe of left foot Anxiety Arthritis Depression Diabetic foot ulcer Diabetic peripheral neuropathy Gastroesophageal reflux disease Hearing loss History of kidney stones Hyperlipidemia Hypertension Insulin dependent type 2 diabetes mellitus Hemoglobin A1c was 8.1% on 11/11/2019. Kidney disease Obstructive sleep apnea Noncompliant with treatment. Osteomyelitis Right patella fracture Surgical History Surgical History (Updated 03/04/20 @ 22:05 by Zuri Peterson PA-C) 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 History of extraction of renal calculus Family History Family History Mother Acute myocardial infarction Diabetes mellitus Cerebrovascular accident Hypertension Father Acute myocardial infarction Diabetes mellitus Cerebrovascular accident Hypertension Grandparent Diabetes mellitus Colon cancer Hypertension Grandparent Congestive heart failure Other Family history of arthritis Family history of cardiovascular disease Family history of malignant neoplasm Social History Social History (Updated 03/04/20 @ 22:06 by Zuri Peterson PA-C) Social History: Surrogate decision maker: Ata Workman, . Code status: Full code. Smoking packs per day: 1.5 Smoking cigarettes per day: 30.0 Years smoked: 20 Smoking pack-years: 30.00 Smoking status: Former smoker Tobacco type: cigarettes Smoking end date: 03/10/18 Alcohol intake: never Substance use: never Substance use type: does not use Additional living arrangements comments: Lives in [place] with his . Additional occupation/education comments: Works at the [employer]. Gender identity (if verbalized by the patient): Male Sexual Orientation (if Verbalized by the Patient): Straight or Heterosexual Spiritual care concerns: No Meds Home Medications and Allergies Home Medications Medication Instructions Recorded Confirmed Type aspirin [Aspirin Low Dose] 162 mg PO DAILY 01/05/19 03/04/20 History atorvastatin 40 mg PO DAILY 01/05/19 03/04/20 History gabapentin 300 mg PO TID 01/05/19 03/04/20 History insulin
[2020-03-04 21:02] LABS: Glucose Point of Care 126 (65-105)
[2020-03-04 21:42] LABS: Hemoglobin A1C 7.5 % (<5.7)
[2020-03-04] MEDS: GABAPENTIN 300 MG CAPSULE PO (21:47)
[2020-03-04 22:00] VITALS: BP 115/73; PULSE 92; RESP 16; TEMP 36.3; O2SAT 99
[2020-03-04 22:22] LABS: Glucose Point of Care 161 (65-105)
[2020-03-05 06:00] VITALS: BP 117/65; PULSE 82; RESP 16; TEMP 36.1; O2SAT 97
[2020-03-05 06:04] LABS: Hematocrit 42.2 % (42.0-52.0); Hemoglobin 13.7 g/dL (14.0-18.0); Mean Corpuscular HGB Conc 32.5 g/dl (32-36); Mean Corpuscular Volume 89.4 fl (80-100); Mean Platelet Volume 9.7 fl (7.4-10.4); Platelet Count Result 218 k/mm3 (150-375); Red Blood Count 4.72 M/mm3 (4.6-6.20); Red Cell Distribution Width 12.5 % (11.5-14.5); White Blood Count 8.3 K/mm3 (4.5-10.0)
[2020-03-05 06:20] LABS: Anion Gap 5 mmol/L (8-16); Blood Urea Nitrogen 26 mg/dL (9-20); Calcium 8.7 mg/dL (8.4-10.2); Carbon Dioxide 32 mmol/L (22-30); Chloride 102 mmol/L (98-107); Estimated CRCL calculation 116 ml/min; Estimated Glomerular Filt Rate > 60; Glucose 131 mg/dL (75-110); Magnesium 1.9 mg/dL (1.6-2.3); Potassium 3.9 mmol/L (3.4-5.0); Sodium 139 mmol/L (137-145)
[2020-03-05] MEDS: GABAPENTIN 300 MG CAPSULE PO ×3 (06:36→21:04)
[2020-03-05 07:35] LABS: Glucose Point of Care 161 (65-105)
[2020-03-05] MEDS: INSULIN DETEMIR 100 UNITS/ML 40 UNITS SUB-Q (09:20)
[2020-03-05] MEDS: ATORVASTATIN 40 MG TABLET PO (09:23)
[2020-03-05] MEDS: ASPIRIN 81 MG ENTERIC TABLET 162 MG PO (09:23)
[2020-03-05] MEDS: LOSARTAN POTASSIUM 50 MG TABLET PO (09:23)
--- NOTE | 2020-03-05 09:59 | PM.IMPN ---
Progress Note: A&P Assessment and Plan (1) Diabetic foot infection: Code(s): E11.628 - Type 2 diabetes mellitus with other skin complications; L08.9 - Local infection of the skin and subcutaneous tissue, unspecified Status: Acute Assessment and Plan: Patient states this started about 2 days ago -will continue vancomycin and imipenem consistent with antibiotic stewardship guidelines -continue glucose control -he is a diabetic with relatively good control A1c 7.5 -x-ray bilaterally did not show any osseous abnormality. -ultrasound of the right lower extremity, MRI of the right foot, and arterial Dopplers have been ordered and are pending -patient sees Dr. Alexandra but is unclear if he is nursing education consultant. It looks like his office was contacted and the nurses going to verify this. If not we can get surgery involved -white blood cell count within normal limits and CRP mildly elevated, no signs of systemic infection at this time. -wound cultures pending (2) Hypoglycemia: Code(s): E16.2 - Hypoglycemia, unspecified Status: Acute Assessment and Plan: Noted on admission -last glucose 161 -continue Lantus but decrease dose -will continue sliding scale insulin at this time and hold his mealtime insulin and adjust as necessary (3) Insulin dependent type 2 diabetes mellitus: Code(s): E11.9 - Type 2 diabetes mellitus without complications; Z79.4 - USP (current) use of insulin Status: Acute Assessment and Plan: See above (4) Hypertension: Code(s): I10 - Essential (primary) hypertension Status: Acute Assessment and Plan: Last blood pressure 117/65 -Continue losartan (5) Hyperlipidemia: Code(s): E78.5 - Hyperlipidemia, unspecified Status: Inactive Assessment and Plan: Chronic -Continue lipitor Time Spent With Patient Time with patient: 25 - 35 minutes Subjective Date/time seen: 03/05/20 09:59 Interval history: Pt is a 44-year-old diabetic here for bilateral foot wounds. Patient was seen today and states he thinks the areas are looking better. He has some pain in the left toe other than that is doing okay. He swears at these came up overnight as his checks his feet every day. He has not had any fevers, chills or other complaints at this time. He specifically denies chest pain, shortness of breath, nausea, vomiting, and diarrhea. His right foot has been swollen since he fell on his knee last month. Review of Systems Review of Systems: All systems reviewed & are unremarkable except as noted in HPI and below Exam Narrative: Exam Narrative: General: Well developed well nourished patient in NAD HEENT: normocephalic Neck: supple Neuro: Alert and oriented x4 CV:RRR Resp:CTA Abd: Soft, non distended. No pain to palpation. Positive bowel sounds Extremities: right foot 1+ edema with dark ulceration to the tip of the toe with the 2nd and 3rd toe having superficial uclers with discharge. left foot great toe has we ulcers that seem shallow with discharge. Pulses are palpable and appear 2+ Objective Data Vital Signs Vital Signs: Vital Signs - 24 hr 03/04/20 11:57 03/04/20 15:53 03/04/20 16:52 Temperature 98.0 F Pulse Rate 104 H 98 98 Respiratory Rate 16 18 18 Blood Pressure 149/89 H 142/92 H 142/98 H Pulse Oximetry 97 98 98 03/04/20 17:30 03/04/20 22:00 03/05/20 06:00 Temperature 97.8 F 97.4 F L 96.9 F L Pulse Rate 98 92 82 Respiratory Rate 18 16 16 Blood Pressure 161/89 H 115/73 117/65 Pulse Oximetry 99 99 97 Intake/Output Intake/Output: Intake & Output 03/02/20 03/03/20 03/04/20 03/05/20 23:59 23:59 23:59 23:59 Intake Total 200 1000 Output Total 500 Balance 200 500 Meds/Results Medications: Active Medications Generic Name Dose Route Start Last Admin Trade Name Maxiq PRN Reason Stop Dose Admin Aspirin 162 mg 03/05/20 09:00 03/05/20 09:23 Aspirin 81 Mg Enteric T
--- NOTE | 2020-03-05 11:55 | PM.CNGS ---
Assessment and Plan Assessment and plan (1) Diabetic foot infection: Onset Date: ~03/04/20 Code(s): E11.628 - Type 2 diabetes mellitus with other skin complications; L08.9 - Local infection of the skin and subcutaneous tissue, unspecified Status: Acute Assessment and Plan: This is the main reason for the patient's admission. He was started on appropriate IV antibiotics after admission. Cultures were obtained from 2 of his infected toes. And I agree with this. Noon will begin dressing changes daily with silver gel and wraps. Patient will be okay to shower. Agree with evaluation of in flow with arterial Dopplers. Patient may need a CT a of the lower extremities to look for specific lesions that could be correctable by a vascular surgeon. (2) Diabetic foot ulcer: Onset Date: 03/04/20 Qualifiers: Diabetes mellitus type: type 2 Diabetic foot ulcer location: toe Laterality: left Non-pressure ulcer stage: limited to breakdown of skin Qualified Code(s): E11.621 - Type 2 diabetes mellitus with foot ulcer; L97.521 - Non-pressure chronic ulcer of other part of left foot limited to breakdown of skin Code(s): E11.621 - Type 2 diabetes mellitus with foot ulcer; L97.509 - Non-pressure chronic ulcer of other part of unspecified foot with unspecified severity Status: Acute Assessment and Plan: There is skin breakdown with superficial ulceration and blistering on the right 1st and 2nd toes and the left 1st toe. Plain x-rays of the feet revealed no signs of bony abnormalities to suggest osteomyelitis. There is some signs of arthritis. (Please see reports ). (3) Hypertension: Onset Date: Unknown Code(s): I10 - Essential (primary) hypertension Status: Acute Assessment and Plan: Blood pressure somewhat elevated upon admission. Hospitalist following this and adjusting meds. (4) Insulin dependent type 2 diabetes mellitus: Code(s): E11.9 - Type 2 diabetes mellitus without complications; Z79.4 - prison (current) use of insulin Status: Acute (5) Poor balance: Onset Date: Unknown Code(s): R26.89 - Other abnormalities of gait and mobility Status: Acute Assessment and Plan: Patient does apparently alternately use a cane or a walker at home. Balance issues are unknown etiology. (6) Right knee pain: Onset Date: ~2019 Qualifiers: Chronicity: acute Qualified Code(s): M25.561 - Pain in right knee Code(s): M25.561 - Pain in right knee Status: Acute Assessment and Plan: Patient wearing a right knee brace. Apparently has had longstanding problems with pain in both knees but more on the right now than the left. Additional Plan Will allow patient to shower Will have nurses start doing daily dressing changes with silver gel then wrap gauze wraps Patient may need to use cast boot to walk with to protect toes. Agree with evaluation and follow-up with the wound Clinic nurses. Await evaluation of inflow by arterial Dopplers to the lower extremities. Will talk pharmacy about possible use of Platel or Trental depending which they have here. (This was discussed with patient as a attempt to improve blood flow to the toes). History of Present Illness Consult details Consult date: 03/05/20 Reason for consult: wound care (Superficial skin breakdown with blistering infection bilateral toes /known diabetic) Narrative: King Workman is a 44-year-old diabetic white disabled male with insulin-dependent type 2 diabetes mellitus, hypertension, and hyperlipidemia who presented to the emergency department yesterday from home with complaints of bilateral toe wounds. Patient has a history of diabetic foot wounds and osteomyelitis requiring left 5th toe amputation in June 2018. The patient tells me that his monitors his feet daily, and that today she noticed that his right 1st toe was discolored and there were sev
[2020-03-05 12:00] LABS: Glucose Point of Care 189 (65-105)
[2020-03-05] MEDS: SILVERGEL (ELTA) 45 ML 1 APPLIC TOPICAL (13:56)
[2020-03-05 14:00] VITALS: BP 118/71; PULSE 101; RESP 18; TEMP 36.2; O2SAT 98
[2020-03-05] MEDS: PENTOXIFYLLINE 400 MG TABCR PO (16:35)
[2020-03-05 16:59] LABS: Glucose Point of Care 161 (65-105)
[2020-03-05 21:07] LABS: Glucose Point of Care 188 (65-105)
[2020-03-05 21:23] VITALS: BP 117/83; PULSE 91; RESP 16; TEMP 36.4; O2SAT 98
[2020-03-06 03:17] LABS: Hematocrit 40.8 % (42.0-52.0); Hemoglobin 13.5 g/dL (14.0-18.0); Mean Corpuscular HGB Conc 33.1 g/dl (32-36); Mean Corpuscular Hemoglobin 29.2 pg (26-34); Mean Corpuscular Volume 88.1 fl (80-100); Mean Platelet Volume 9.6 fl (7.4-10.4); Platelet Count Result 226 k/mm3 (150-375); Red Blood Count 4.63 M/mm3 (4.6-6.20); Red Cell Distribution Width 12.6 % (11.5-14.5); White Blood Count 8.6 K/mm3 (4.5-10.0)
[2020-03-06 03:45] LABS: Anion Gap 7 mmol/L (8-16); Blood Urea Nitrogen 27 mg/dL (9-20); Calcium 8.8 mg/dL (8.4-10.2); Carbon Dioxide 31 mmol/L (22-30); Chloride 99 mmol/L (98-107); Estimated CRCL calculation 72 ml/min; Estimated Glomerular Filt Rate 51; Glucose 172 mg/dL (75-110); Potassium 4.3 mmol/L (3.4-5.0); Sodium 137 mmol/L (137-145)
[2020-03-06 04:36] LABS: Vancomycin Trough 20.4 ug/mL (10.0-20.0)
[2020-03-06] MEDS: GABAPENTIN 300 MG CAPSULE PO ×2 (05:43→14:29)
[2020-03-06 05:45] VITALS: BP 103/56; PULSE 90; RESP 18; TEMP 36.9; O2SAT 95
[2020-03-06 07:55] LABS: Glucose Point of Care 189 (65-105)
[2020-03-06] MEDS: ASPIRIN 81 MG ENTERIC TABLET 162 MG PO (08:56)
[2020-03-06] MEDS: PENTOXIFYLLINE 400 MG TABCR PO ×3 (08:56→18:03)
[2020-03-06] MEDS: LOSARTAN POTASSIUM 50 MG TABLET PO (08:56)
[2020-03-06] MEDS: ATORVASTATIN 40 MG TABLET PO (08:56)
[2020-03-06] MEDS: INSULIN DETEMIR 100 UNITS/ML 40 UNITS SUB-Q (08:57)
--- NOTE | 2020-03-06 09:32 | PM.DS ---
DS: Admitting Diagnosis Admitting Diagnosis Admitting Diagnosis: Diabetic foot wounds DS: Discharge Diagnosis Discharge Diagnosis (1) Diabetic foot infection: Onset Date: ~03/04/20 Code(s): E11.628 - Type 2 diabetes mellitus with other skin complications; L08.9 - Local infection of the skin and subcutaneous tissue, unspecified Status: Acute Assessment and Plan: Patient states this started about 2 days prior to admission -Pt received vancomycin and imipenem while hospitalized and discharged on keflex and doxy -continue glucose control -he is a diabetic with relatively good control A1c 7.5 -x-ray bilaterally did not show any osseous abnormality. -MRI right foot without osteo -No blood clots -CLINTON mildly decreased--plavix started and aspirin stopped. -I called Dr. Goss, his pcp, and he plans to follow these wound since they are superficial. He can refer to grebing if they worsen -silver gel to the left foot with dressings and Betadine to the right -white blood cell count within normal limits and CRP mildly elevated, no signs of systemic infection at this time. - (2) Hypoglycemia: Code(s): E16.2 - Hypoglycemia, unspecified Status: Acute Assessment and Plan: Noted on admission -last glucose 336 but was getting dextrose in his vanc bag during this. His trends ranged from 160-180 -Adjusted home medications but educated him on checking his home glucose more often, especially if he feels bad after meals (3) Insulin dependent type 2 diabetes mellitus: Code(s): E11.9 - Type 2 diabetes mellitus without complications; Z79.4 - termite inspector (current) use of insulin Status: Acute Assessment and Plan: See above (4) Hypertension: Onset Date: Unknown Code(s): I10 - Essential (primary) hypertension Status: Acute Assessment and Plan: Last blood pressure 103/56 -Continue losartan (5) Hyperlipidemia: Code(s): E78.5 - Hyperlipidemia, unspecified Status: Inactive Assessment and Plan: Chronic -Continue lipitor DS: Summary Hospital Course Reason for hospitalization: Diabetic foot wound Hospital Course: Patient is a 24-year-old male with history of diabetes who presented emergency room 03/04/20 bilateral foot wounds. X-ray in the ER did not show any signs of osteomyelitis. White blood cell count was normal and CRP mildly elevated 1.6. Patient was admitted to the hospitalist service and started on imipenem and vancomycin. The patient had ultrasound of the lower extremity which did not show any DVTs in the right leg. He also had ABIs which showed mild peripheral arterial disease. Patient has neuropathy and has constant pain but not necessarily claudication symptoms. His aspirin was stopped and he was started on Plavix for this. He saw the surgery team as well as wound care while here they recommended silver gel and dressings to the left foot and Betadine to the right. Although no systemic infection was suspected, he was discharged on doxycycline and Keflex to finish a 7 day course. His creatinine went up a little bit the day of discharge but could be due to the vancomycin which will be discontinued. He appears euvolemic and is eating and drinking okay. I called his primary care physician and he agreed to follow the patient as they are superficial wounds and has times slots next week for him. The patient sees Dr. Alexandra in the past but I do not think this needs to be followed by an orthopedist or wound care at this time as they are pretty superficial. The patient also mentions that after he eats sometimes he feels very bad. He feels like he has no energy and has to lay down and feels weak and out of it . He has diabetes and he was having hypoglycemia on admission. For this reason I have decreased his insulin to 10 units with meals (he only takes this if glucose is above 120) and told him to check his insulin when h
[2020-03-06] MEDS: SILVERGEL (ELTA) 45 ML 1 APPLIC TOPICAL (11:27)
[2020-03-06] MEDS: INSULIN ASPART (*BKC) 100 UNITS/ML SUB-Q (11:28)
--- NOTE | 2020-03-06 11:37 | PM.PNGS ---
Progress Note: A&P Assessment and Plan (1) Diabetic foot infection: Onset Date: ~03/04/20 Code(s): E11.628 - Type 2 diabetes mellitus with other skin complications; L08.9 - Local infection of the skin and subcutaneous tissue, unspecified Status: Acute Assessment and Plan: Diabetic foot wounds on bilateral feet (Left great toe and right great toe and 2nd toe). Culture obtained from 2 of the infected toes with both preliminary results showing growth of gram positive cocci. Currently on IV antibiotics and would recommend transitioning to oral antibiotics on discharge. Discussed with the Hostpitalist - okay with another week of oral antibiotics. Okay from a surgical standpoint to discharge the patient home today. I discussed wound care instructions with the patient and his today, his agrees to doing the dressing changes. We will do daily dressing changes with betadine applied to the right 1st/2nd toe wounds and cover with gauze. Shower prior to dressing changes daily. Daily dressings with silver gel and mepliex transfer applied to the left great toe wound. He was instructed to wear post-op shoes bilaterally when ambulating and avoid using any type of shoe. Follow-up with Dr. Jain in our office in 1-2 weeks. We will also continue the Pentoxifylline for the next month and discuss length of therapy in his follow-up appt in the office. (2) Diabetic foot ulcer: Onset Date: 03/04/20 Qualifiers: Diabetic foot ulcer location: toe Diabetes mellitus type: type 2 Laterality: left Non-pressure ulcer stage: limited to breakdown of skin Qualified Code(s): E11.621 - Type 2 diabetes mellitus with foot ulcer; L97.521 - Non-pressure chronic ulcer of other part of left foot limited to breakdown of skin Code(s): E11.621 - Type 2 diabetes mellitus with foot ulcer; L97.509 - Non-pressure chronic ulcer of other part of unspecified foot with unspecified severity Status: Acute Assessment and Plan: MRI right foot showed no abscess or osteomyelitis, but there was evidence of polyarticular osteoarthritis, moderate at the first metatarsophalangeal and first interphalangeal joints. No surgical indication at this time. Continue local wound care and close follow-up. Also he needs tight glycemic control for wound healing. Arterial doppler results noted - may consider referral to vascular surgery if he has complications with wound healing, specifically on the right leg (Left CLINTON normal). See plan above. (3) Hypertension: Onset Date: Unknown Code(s): I10 - Essential (primary) hypertension Status: Acute (4) Insulin dependent type 2 diabetes mellitus: Code(s): E11.9 - Type 2 diabetes mellitus without complications; Z79.4 - emt intermediate (current) use of insulin Status: Acute Assessment and Plan: Discussed the importance of glycemic control with wound healing and the infection. (5) Poor balance: Onset Date: Unknown Code(s): R26.89 - Other abnormalities of gait and mobility Status: Acute Assessment and Plan: Patient does apparently alternately use a cane or a walker at home. Balance issues are unknown etiology. Important to take precautions to avoid falls at home since he will be going home on Plavix and Pentoxifylline, he will be at an increased risk of bleeding. (6) Right knee pain: Onset Date: ~2018 Qualifiers: Chronicity: acute Qualified Code(s): M25.561 - Pain in right knee Code(s): M25.561 - Pain in right knee Status: Acute Additional Plan Discussed plan of care with Dr. Jain. Subjective Subjective Date/Time Seen: 03/06/20 09:37 Patient reports: no new complaints and feels better Interval history: Patient feeling well this morning. No new complaints. No pain at this time. I spoke with the patient and his , Ata, on the phone during my evaluation. Review of Systems Review of Systems: All systems review
[2020-03-06 11:57] LABS: Glucose Point of Care 336 (65-105)
[2020-03-06 13:51] VITALS: BP 93/51; PULSE 102; RESP 20; TEMP 36.8; O2SAT 100
--- NOTE | 2020-03-06 14:32 | PC.NURSE ---
call from lab, incorrect tube sent down for UA, will need another specimen, pt made aware
[2020-03-06 16:30] LABS: Add Urine Microscopic? YES; Appearance Urine Clear (Clear); Bilirubin Urine Negative (Negative); Blood Urine Negative (Negative); Color Urine Yellow (Yellow); Glucose Urine UA 3+ mg/dL (Negative); Ketones Urine Negative (Negative); Leukocyte Esterase Ur Trace LEU/UL (Negative); Mucus Urine Rare /lpf; Nitrate Urine Negative (Negative); Protein Urine Negative (Negative); RBC Urine 0-2 /hpf (0-2); Squamous Epithelial Cell Urine Occasional /hpf (Few); Urobilinogen Urine Negative mg/dL (<2.0)
[2020-03-06 16:55] LABS: Glucose Point of Care 162 (65-105)
--- NOTE | 2020-03-13 08:37 | PC.NURSE ---
Urine cx is negative.
--- NOTE | 2020-03-14 09:47 | PC.NURSE ---
Blood cx are negative. Wound cx findings given to ANGELA Haley
== END 2020-03-06 18:44 | disposition home or self-care (01) | DRG 380 ==
LOC: ANHED 14:21 → ANH2MED 19:22
PROVIDERS: Physician Assistant; Admitting Provider Internal Medicine; Emergency Provider Emergency Medicine; PCP Family Medicine; Visit Provider Physician Assistant
DX: E11.628 Type 2 diabetes mellitus with other skin complications (principal); E11.621 Type 2 diabetes mellitus with foot ulcer; L97.521 Non-pressure chronic ulcer of other part of left foot limited to breakdown of skin; L97.519 Non-pressure chronic ulcer of other part of right foot with unspecified severity; L08.9 Local infection of the skin and subcutaneous tissue, unspecified; E11.649 Type 2 diabetes mellitus with hypoglycemia without coma; E11.40 Type 2 diabetes mellitus with diabetic neuropathy, unspecified; E11.51 Type 2 diabetes mellitus with diabetic peripheral angiopathy without gangrene; R26.89 Other abnormalities of gait and mobility; M25.561 Pain in right knee; I10 Essential (primary) hypertension; E78.5 Hyperlipidemia, unspecified; K21.9 Gastro-esophageal reflux disease without esophagitis; G47.33 Obstructive sleep apnea (adult) (pediatric); Z28.21 Immunization not carried out because of patient refusal; Z79.4 Long term (current) use of insulin; Z79.82 Long term (current) use of aspirin; Z87.891 Personal history of nicotine dependence; Z89.422 Acquired absence of other left toe(s)
CPT/HCPCS: 36415; 73630; 73720; 80048; 80053; 80202; 81001; 83036; 83605; 83735; 85025; 85027; 85610; 85652; 85730; 86140; 87040; 87070; 87077; 87086; 87186; 87205; 93923; 93971; 96365; 96367; 99285; A9270; A9577; J0743; J1815; J3370

== ENCOUNTER 2020-03-30 15:53 | Outpatient (CLI) | payer OTHER, SELFPAY ==
[2020-03-30 17:11] LABS: Thyroid Stimulating Hormone 0.915 uIU/mL (0.465-4.680)
[2020-03-30 17:15] LABS: Free T4 Free Thyroxine 0.81 ng/mL (0.78-2.19)
== END 2020-03-30 15:54 | disposition home or self-care (01) ==
LOC: ANHLAB 15:58
PROVIDERS: PCP Family Medicine; Visit Provider Internal Medicine Cardiovascular Disease
DX: R00.2 Palpitations (principal)
CPT/HCPCS: 36415; 84439; 84443

== ENCOUNTER 2020-04-01 10:15 | Emergency (ER) | payer OTHER, SELFPAY ==
[2020-04-01 10:25] VITALS: BP 117/68; PULSE 129; RESP 20; TEMP 36.9; O2SAT 95
--- NOTE | 2020-04-01 10:27 | ED.GENADULT ---
HPI - General Adult General Chief complaint: Upper Respiratory Infection Stated complaint: upper respiratory infection Source: patient Mode of arrival: ambulatory Limitations: no limitations History of Present Illness HPI narrative: 44 y/o male. PMH includes: GERD, HTN, DM II, PVD (on active Plavix anticoagulation), Obesity, KHADAR. Presents to [facility] clinic today with acute complaints of nasal congestion, sore throat, and body aches. He reports family member whom has been ill with similar manifestations in past 1 week. had been exposed to positive Covid co-worker. He is a former smoker. Patient denies fever, chills. No ROMERO, otalgia. Denies cough, chest pain, dyspnea, wheezing, edema. He has not sought out medical evaluation for his illness until now. No additional acute complaints have been relayed upon exam. Related Data Home Medications Medication Instructions Recorded Confirmed atorvastatin 40 mg PO DAILY 01/05/19 03/14/20 gabapentin 300 mg PO TID 01/05/19 03/14/20 insulin detemir U-100 50 unit SUBCUT DAILY 01/05/19 03/14/20 losartan 50 mg PO DAILY 01/05/19 03/14/20 naproxen 250 mg tablet 250 mg PO BID PRN 03/14/20 03/14/20 Allergies Allergy/AdvReac Type Severity Reaction Status Date / Time latex Allergy Unknown Urticaria Verified 03/14/20 10:15 lisinopril Allergy Unknown unknown Verified 03/14/20 10:15 piperacillin Allergy Chills Verified 03/14/20 10:15 Review of Systems Review of Systems: Narrative: CONSTITUTIONAL: Denies fever, chills, sweats. Positive body aches. EYES: Denies visual changes, redness, discharge. ENT: Positive rhinorrhea, congestion, sore throat. No otalgia. CARDIOVASCULAR: Denies chest pain, palpitations, edema. RESPIRATORY: Denies cough. Denies dyspnea, wheezing. GASTROINTESTINAL: Denies abdominal pain, nausea, vomiting, diarrhea. GENITOURINARY: Denies dysuria, hematuria, abnormal discharge SKIN: Denies rash or itching. MUSCULOSKELETAL: Denies acute back pain, joint pain, or myalgia. NEUROLOGIC: Denies numbness, or focal weakness. PSYCHIATRIC: Denies anxiety or depression. 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 Kidney disease Obstructive sleep apnea Noncompliant with treatment. Osteomyelitis Right patella fracture Surgical History Surgical History 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 History of extraction of renal calculus Family History Family History Mother Acute myocardial infarction Diabetes mellitus Cerebrovascular accident Hypertension Father Acute myocardial infarction Diabetes mellitus Cerebrovascular accident Hypertension Grandparent Diabetes mellitus Colon cancer Hypertension Grandparent Congestive heart failure Other Family history of arthritis Family history of cardiovascular disease Family history of malignant neoplasm Social History Social History Social History: Surrogate decision maker: Ata Workman, . Code status: Full code. Smoking packs per day: 1.5 Smoking cigarettes per day: 30.0 Years smoked: 20 Smoking pack-years: 30.00 Smoking status: Former smoker Tobacco type: cigarettes Smoking end date: 03/10/18 Alcohol intake: never Substance use: never Substance use type: does not use Additional living arrangements comments: Lives in [place] with his w
== END 2020-04-01 11:04 | disposition home or self-care (01) ==
PROVIDERS: Emergency Provider Nurse Practitioner Adult Health; PCP Family Medicine
DX: J02.0 Streptococcal pharyngitis (principal); Z20.822 Contact with and (suspected) exposure to COVID-19; M19.90 Unspecified osteoarthritis, unspecified site; E11.42 Type 2 diabetes mellitus with diabetic polyneuropathy; K21.9 Gastro-esophageal reflux disease without esophagitis; E78.5 Hyperlipidemia, unspecified; G47.33 Obstructive sleep apnea (adult) (pediatric); Z91.19 Patient's noncompliance with other medical treatment and regimen; Z89.422 Acquired absence of other left toe(s); E11.51 Type 2 diabetes mellitus with diabetic peripheral angiopathy without gangrene; Z79.4 Long term (current) use of insulin; Z87.891 Personal history of nicotine dependence; Z79.01 Long term (current) use of anticoagulants
CPT/HCPCS: 87426; 87804; 87880; 99213; C9803; G0463

== ENCOUNTER 2020-10-20 13:46 | Outpatient (CLI) | payer OTHER, SELFPAY ==
--- NOTE | 2020-11-15 22:13 | WPDHOMESLEEP ---
Sleep Study - Home Unattended Date of Study: 10/20/20 Ordering Provider: Kaylynn Mcfarlane MD Interpreting Provider: Kaylynn Mcfarlane MD Home Sleep Study Type: Apnea Link Air Height: 1.75 m Weight: 133.81 kg Body Mass Index: 43.5 Neck Circumference (inches): 20 [place]: 7 Reason for Sleep Study Loud snoring Sleep History King Workman is a 45 year man who has loud snoring that frequently disturbed others. He had a diagnosis of obstructive sleep apnea 20 years ago. He frequently has trouble sleeping with a cold. He does not awaken from sleep feeling short of breath. He rarely and awakens at night with heartburn, belching or coughing. He does not gasp for breath at night. He occasionally has breathing problems at night observed by others and occasionally sweats excessively at night. He occasionally notices his heart pounding or beating irregularly at night. He occasionally falls asleep during the day but never falls asleep involuntarily or while driving. He does not have daytime difficulties due to excessive sleepiness. He occasionally feels paralyzed on waking but does not feel paralyzed on falling asleep. He occasionally has vivid dreamlike scenes upon awakening or falling asleep. He does not feel afraid to go to sleep. He occasionally has nightmares. He occasionally remembers his dreams. He occasionally has racing thoughts. He occasionally has feelings of sadness and depression. He constantly has anxiety. He occasionally has muscular tension and notices parts of his body jerking. He does not kick at night. He occasionally has crawling and aching feelings in his legs at night. He frequently has leg pain during the night. He does not have morning jaw pain and does not grind his teeth during sleep. He frequently is bothered by pain during the day, occasionally awakened by pain at night and occasionally wakes up feeling stiff in the morning. He constantly wakes up with sore achy muscles. He does not wake up with pain in the neck and spine. He sometimes has palpitations, nightmares, depression, fatigue and panic. He sometimes has memory problems. Normal bedtime is between 1:00 a.m. and 2:00 a.m., taking a while to fall asleep typically waking 1 or 2 times at night to urinate and play a game on the phone. It takes him sometimes up to 30 minutes or an hour to return to sleep. He wakes up sometime between 8 and 10:00 a.m.. His weekend schedule is the same. He estimates getting between 5 and 6 hours of sleep at night. He sometimes takes naps. A short nap may be refreshing. He is usually drowsy all throughout the day. He feels better in the afternoon compared to other times of day. Habits: Quit tobacco 3 years ago. Caffeine 2 servings a day. No alcohol or recreational drugs. [facility] Past Medical History Medical History (Reviewed 04/13/20 @ 14:08 by Vilma Sunshine 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 Kidney disease Obstructive sleep apnea Noncompliant with treatment. Osteomyelitis Right patella fracture Surgical History Surgical History (Reviewed 04/13/20 @ 14:08 by Vilma Sunshine [facility]) 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 History of extraction of renal calculus Family History Family History (Reviewed 04/13/20 @ 14:08 by Vilma Sunshine [facility]) Mother Acute myocardial infarction Diabetes mellitus Cerebrovascular accident Hypertension Father Acute myocardial infarction Diabetes mellitus Cerebrovascular accident Hypertension Grandparent Diabetes mellitus Colon cancer Hypertension Grandparent Congestive heart failure Other Family history of arthritis Family history of cardiovas
[2020-11-15 22:20] VITALS: BMI 43.5
== END 2020-10-23 14:04 | disposition home or self-care (01) ==
LOC: ANHCSM 10-23 13:46
PROVIDERS: PCP Family Medicine; Visit Provider Internal Medicine Critical Care Medicine
DX: G47.33 Obstructive sleep apnea (adult) (pediatric) (principal)
CPT/HCPCS: 95806

== ENCOUNTER 2021-02-28 07:51 | Outpatient (CLI) | payer OTHER, SELFPAY ==
--- NOTE | 2021-03-19 20:05 | WPDSLEEPSTUD ---
Sleep Study Date of Study: 02/28/21 <Crystal Becker, DO - Last Filed: 03/20/21 14:04> Ordering Provider: Phuc Blount APRN <Crystal Becker, DO - Last Filed: 03/20/21 14:04> Interpreting Physician: Crystal Becker DO <Crystal Becker DO - Last Filed: 03/20/21 14:04> Sleep Study Type: CPAP Titration <Crystal Becker DO - Last Filed: 03/20/21 14:04> Height: 1.75 m <Crystal Becker DO - Last Filed: 03/20/21 14:04> Weight: 138.799 kg <Crystal Becker DO - Last Filed: 03/20/21 14:04> Body Mass Index: 45.1 <Crystal Becker DO - Last Filed: 03/20/21 14:04> Neck Circumference (inches): 19 <Crystal Becker DO - Last Filed: 03/20/21 14:04> [place]: 3 <Crystal Becker DO - Last Filed: 03/20/21 14:04> Reason for Sleep Study The patient had an HSAT done on 10/20/2020 that showed an AHI of 31.1 with desaturation down to 63%. <Crystal Becker DO - Last Filed: 03/20/21 14:04> Sleep History King Workman is a 45 year man who has loud snoring that frequently disturbed others. He had a diagnosis of obstructive sleep apnea 20 years ago. He frequently has trouble sleeping with a cold. He does not awaken from sleep feeling short of breath. He rarely and awakens at night with heartburn, belching or coughing. He does not gasp for breath at night. He occasionally has breathing problems at night observed by others and occasionally sweats excessively at night. He occasionally notices his heart pounding or beating irregularly at night. He occasionally falls asleep during the day but never falls asleep involuntarily or while driving. He does not have daytime difficulties due to excessive sleepiness. He occasionally feels paralyzed on waking but does not feel paralyzed on falling asleep. He occasionally has vivid dreamlike scenes upon awakening or falling asleep. He does not feel afraid to go to sleep. He occasionally has nightmares. He occasionally remembers his dreams. He occasionally has racing thoughts. He occasionally has feelings of sadness and depression. He constantly has anxiety. He occasionally has muscular tension and notices parts of his body jerking. He does not kick at night. He occasionally has crawling and aching feelings in his legs at night. He frequently has leg pain during the night. He does not have morning jaw pain and does not grind his teeth during sleep. He frequently is bothered by pain during the day, occasionally awakened by pain at night and occasionally wakes up feeling stiff in the morning. He constantly wakes up with sore achy muscles. He does not wake up with pain in the neck and spine. He sometimes has palpitations, nightmares, depression, fatigue and panic. He sometimes has memory problems. Normal bedtime is between 1:00 a.m. and 2:00 a.m., taking a while to fall asleep typically waking 1 or 2 times at night to urinate and play a game on the phone. It takes him sometimes up to 30 minutes or an hour to return to sleep. He wakes up sometime between 8 and 10:00 a.m.. His weekend schedule is the same. He estimates getting between 5 and 6 hours of sleep at night. He sometimes takes naps. A short nap may be refreshing. He is usually drowsy all throughout the day. He feels better in the afternoon compared to other times of day. Habits: Quit tobacco 3 years ago. Caffeine 2 servings a day. No alcohol or recreational drugs. 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
[2021-03-20 13:56] VITALS: BMI 45.1
== END 2021-03-01 07:23 | disposition home or self-care (01) ==
LOC: ANHCSM 07:52
PROVIDERS: PCP Family Medicine; Visit Provider Nurse Practitioner Family
DX: G47.33 Obstructive sleep apnea (adult) (pediatric) (principal)
CPT/HCPCS: 95811

== ENCOUNTER → 2021-04-10 03:00 | Outpatient (CLI) | payer OTHER, SELFPAY ==
[2021-04-10 19:06] LABS: SARS-CoV-2 RNA PCR Negative
== END ==
PROVIDERS: PCP Family Medicine; Visit Provider Specialist
DX: Z01.812 Encounter for preprocedural laboratory examination (principal); Z20.822 Contact with and (suspected) exposure to COVID-19
CPT/HCPCS: C9803; U0003; U0005

== ENCOUNTER 2021-04-13 02:31 | Day surgery (SDC) | payer OTHER, SELFPAY ==
[2021-04-12 14:30] VITALS: BMI 44.4
[2021-04-13] VITALS (8 sets, daily range): BP systolic 138–173; BP diastolic 83–102; PULSE 87–97; RESP 16–22; TEMP 36.6–36.7; O2SAT 93–100; BMI 46.1
--- NOTE | 2021-04-13 09:26 | SUR.PREOP ---
on 04/12/21 patient's pre op call patient was notified on time to report, NPO after MN, no jewelry or lotion, procedure, IV sedation, positioning, limitations/restrictions, pre/post operative medications, activity progression, diet, IV sedation, fall precautions, safety, return to work, driving, equipment. patient and Ata's questions were answered.
[2021-04-13 09:50] LABS: Basophils Percent Auto 0.7 % (0.2-1.2); Eosinophils Absolute Auto 0.3 K/mm3 (0-0.3); Eosinophils Percent Auto 4.8 % (0-4.4); Hematocrit 47.5 % (42.0-52.0); Immature Granulocyte Absolute 0.02 K/mm3 (0.00-0.031); Immature Granulocyte Percent A 0.3 % (0-0.5); Mean Corpuscular HGB Conc 31.6 g/dl (32-36); Mean Corpuscular Hemoglobin 28.6 pg (26-34); Mean Corpuscular Volume 90.5 fl (80-100); Mean Platelet Volume 10.5 fl (7.4-10.4); Monocytes Absolute Auto 0.5 K/mm3 (0.1-0.6); Monocytes Percent Auto 8.6 % (2.6-8.5); Neutrophils Absolute Auto 3.5 K/mm3 (1.3-6.7); Neutrophils Percent Auto 57.6 % (45.5-73.1); Platelet Count Result 228 k/mm3 (150-375); Red Blood Count 5.25 M/mm3 (4.6-6.20); White Blood Count 6.1 K/mm3 (4.5-10.0)
[2021-04-13] MEDS: SODIUM CHLORIDE 0.9% IV 500 ML 100 ML IV CONT (09:50)
--- NOTE | 2021-04-13 10:15 | WPDMODSED ---
Moderate Sedation Note-Pt Data Patient Data Allergies Allergy/AdvReac Type Severity Reaction Status Date / Time latex Allergy Severe Vomiting Verified 04/12/21 15:19 lisinopril Allergy Severe Hives Verified 04/12/21 15:18 piperacillin Allergy Chills Verified 04/13/20 14:08 Home Medications Medication Instructions Recorded Confirmed Type losartan 50 mg PO DAILY 01/05/19 04/13/21 History clopidogrel [Plavix] 75 mg PO DAILY #30 tablet 03/06/20 04/13/21 Rx rosuvastatin 40 mg tablet 40 mg PO DAILY 08/08/20 04/13/21 History acetaminophen 1,000 mg PO HS PRN 04/12/21 04/12/21 History baclofen 5 mg PO TID PRN 04/12/21 04/12/21 History duloxetine 60 mg PO DAILY 04/12/21 04/12/21 History insulin detemir U-100 [Levemir 57 unit SUBCUT DAILY 04/12/21 04/13/21 History U-100 Insulin] insulin lispro 25 sliding scale dose SUBCUT 04/12/21 04/13/21 History TIDWMEAL metoprolol tartrate 25 mg PO BID 04/12/21 04/13/21 History nystatin [Nystop] 1 applic TOPICAL BID PRN 04/12/21 04/12/21 History pantoprazole See Rx Instructions .ROUTE .COMPLEX 04/12/21 04/12/21 History pregabalin 100 mg PO TID PRN 04/12/21 04/12/21 History sulindac 150 mg PO BID PRN 04/12/21 04/12/21 History Current Medications: Active Medications Sodium Chloride (Normal Saline Iv) 500 mls @ 100 mls/hr IV CONT .Q5H SAMANTHA Sedation/Anesthesia: No previous sedation/anesthesia problems (including family history). [facility] Past Medical History Medical History Amputation of fifth toe of left foot Anxiety Arthritis Depression Diabetic foot ulcer (03/04/20) Diabetic peripheral neuropathy Gastroesophageal reflux disease Hearing loss History of kidney stones Hyperlipidemia Hypertension (Unknown) Insulin dependent type 2 diabetes mellitus Hemoglobin A1c was 8.1% on 11/11/2019. Kidney disease Obstructive sleep apnea Noncompliant with treatment. Osteomyelitis Right patella fracture Surgical History Surgical History 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 History of extraction of renal calculus Family History Family History Mother Acute myocardial infarction Diabetes mellitus Cerebrovascular accident Hypertension Father Acute myocardial infarction Diabetes mellitus Cerebrovascular accident Hypertension Grandparent Diabetes mellitus Colon cancer Hypertension Grandparent Congestive heart failure Other Family history of arthritis Family history of cardiovascular disease Family history of malignant neoplasm Social History Social History Social History: Surrogate decision maker: Ata Workman, . Code status: Full code. Smoking packs per day: 1.5 Smoking cigarettes per day: 30.0 Years smoked: 25 Smoking pack-years: 37.50 Smoking status: Former smoker Tobacco type: cigarettes Second hand tobacco smoke exposure: Yes Smoking end date: 04/11/18 Additional smoking assessment comments: estimated quit date 3 years ago Alcohol intake: former Alcohol use details: quit ETOH 13 years Substance use: never Substance use type: does not use Living arrangements: with family Additional living arrangements comments: Lives in [place] with his . Additional occupation/education comments: Works at the [employer]. Gender identity (if verbalized by the patient): Male Sexual Orientation (if Verbalized by the Patient): Straight or Heterosexual Spiritual care concerns: No Mod Sed Physical Exam Physical Exam Pre Procedural Exam: Normal: Throat, Airway, Heart Rate, Heart Rhythm and Neuro Exam and Variation: Appearance (Morbidly obese white male no distress), Lungs ( breath sounds distant but relatively clear), Heart Size ( PMI not palpable) and Extremities (
--- NOTE | 2021-04-13 10:26 | SUR.PREOP ---
1015 Dr. Reed MCCRAY at bedside discussing procedure with patient. MD notified of patient's stop bang score of 12 and BP readings of [id number] on admission. No new orders.
[2021-04-13 10:51] LABS: Anion Gap 5 mmol/L (8-16); Blood Urea Nitrogen 22 mg/dL (9-20); Calcium 9.3 mg/dL (8.4-10.2); Carbon Dioxide 31 mmol/L (22-30); Chloride 100 mmol/L (98-107); Estimated CRCL calculation 114 ml/min; Estimated Glomerular Filt Rate > 60; Glucose 318 mg/dL (65-110); Potassium 5.2 mmol/L (3.4-5.0); Sodium 136 mmol/L (137-145)
--- NOTE | 2021-04-13 11:52 | WPDCARDPROC ---
Cardiac Cath Procedure Note Date of procedure:: 04/13/21 Performing physician:: Jae Mcbride MD Indication:: Chronic chest pain syndrome diabetes morbid obesity Brief clinical history:: this is a 45-year-old man with obesity and chronic type 1 diabetes. He has been having a chest pain syndrome both with and without exertion for a number of years. Procedure Procedure performed:: Coronary angiogram left ventriculogram Angio-Seal to right femoral artery Sedation/Medication given:: no sedation given case start time 11:15 a.m. case end time 11:48 a.m. Access site:: right femoral artery Estimated blood loss:: 25 cc Procedure note:: patient was brought to the cardiac catheterization lab in the postabsorptive state where the right femoral triangle was prepared and draped in the usual fashion. Anesthesia was provided with 1% lidocaine infiltrated locally. Because of morbid obesity and a stated history of significant sleep apnea he was not otherwise sedated. Using the modified Seldinger technique the femoral artery was punctured and a 5 Cypriot vascular sheath was placed. After this left heart catheterization was carried out. I used a 5 Cypriot angled pigtail catheter to measure central hemodynamics and to inject are left ventriculogram in the [place] projection. After this standard 5 Cypriot FL4 catheter was used to engage and inject the left coronary artery. This filled the circumflex but not the LAD well. I then used a FL 3.5, and CLS 3.5 and ultimately AL1 which did fill the LAD adequately. Following this the right coronary artery was then engaged and injected using a standard 5 Cypriot JR4 catheter. The cineangiograms were then reviewed and the case was terminated. An angiogram was done of the femoral artery through the sheath after which an Angio-Seal device was deployed with a good hemostatic result. There were no procedural complications and he left the medical laboratory technologist with no evidence of a groin hematoma. Findings:: Hemodynamics: Central aortic pressure was 196 over 102 left ventricle 196 over 5 end-diastolic was 22. There is no gradient on pullback across the aortic valve. Left ventricle: The left ventricle is normal in size there is concentric LVH and good contractility in all segments the ejection fraction I would visually estimated to be 65%. The left main coronary artery is nicely patent the left anterior descending is a medium caliber artery extending down to around the apex. There is minimal luminal irregularity in the midportion of the LAD but no stenosis more than 20-30%. The circumflex is a very large caliber artery giving rise to the marginal branches and is codominant to the posterior circulation. The circumflex is smooth and angiographically normal. The right coronary artery is medium in caliber codominant to the posterior circulation terminating in an RPDA. The right coronary is smooth and angiographically normal. Conclusion:: 1. Codominant coronary circulation with minimal plaquing in the LAD otherwise no significant coronary artery disease. 2. Somewhat challenging left coronary angiogram because of a angulated takeoff of the LAD from the left main making angiography somewhat more challenging. 3. Preserved left ventricular systolic function 4. Angio-Seal to right femoral artery 5. based on these findings the patient has chronic chest pain syndrome does not appear to be related to myocardial ischemia. Jae Mcbride MD FACC
[2021-04-13 13:46] LABS: Glucose Point of Care 272 mg/dl (65-105)
[2021-04-13] MEDS: INSULIN ASPART (*BKC) 100 UNITS/ML 25 UNITS SUB-Q (13:59)
--- NOTE | 2021-04-13 16:20 | SUR.PHASEII ---
DISCHARGED HOME, OUT VIA WC TO 'S WAITING CAR W/ ALL PERSONAL BELONGINGS AND DISCHARGE PACKET. BILATERAL BRACES ARE ON LOWER LEGS. VOICES NO C/O. NO DISTRESS NOTED.
== END 2021-04-13 16:20 | disposition home or self-care (01) ==
PROVIDERS: PCP Family Medicine; Visit Provider Specialist
PROC: 4A023N7 Measurement of Cardiac Sampling and Pressure, Left Heart, Percutaneous Approach (ICD-10-PCS; CPT 93452; principal; 2021-04-13 10:30)
DX: I25.10 Atherosclerotic heart disease of native coronary artery without angina pectoris (principal); R07.89 Other chest pain; R06.02 Shortness of breath; E78.00 Pure hypercholesterolemia, unspecified; R03.0 Elevated blood-pressure reading, without diagnosis of hypertension; R00.0 Tachycardia, unspecified; R06.00 Dyspnea, unspecified; F41.8 Other specified anxiety disorders; M19.90 Unspecified osteoarthritis, unspecified site; I49.9 Cardiac arrhythmia, unspecified; E78.5 Hyperlipidemia, unspecified; I10 Essential (primary) hypertension; I73.9 Peripheral vascular disease, unspecified; G47.30 Sleep apnea, unspecified; Z87.891 Personal history of nicotine dependence; Z79.4 Long term (current) use of insulin; E11.42 Type 2 diabetes mellitus with diabetic polyneuropathy; K21.9 Gastro-esophageal reflux disease without esophagitis; G47.33 Obstructive sleep apnea (adult) (pediatric); E66.01 Morbid (severe) obesity due to excess calories; Z68.42 Body mass index [BMI] 45.0-49.9, adult
CPT/HCPCS: 36415; 80048; 82948; 85025; 93458; C1760; C1887; C1894; G0269; J1644; J1815; J2250; J3010; J7030; J7040

== ENCOUNTER 2021-08-08 10:15 | Outpatient (CLI) | payer OTHER, SELFPAY ==
[2021-08-08 11:49] LABS: Alanine Aminotransferase 22 U/L (6-50); Albumin Level 4.3 g/dL (3.5-5.1); Alkaline Phosphatase 98 U/L (38-126); Anion Gap 8 mmol/L (8-16); Aspartate Amino Transferase 26 U/L (17-59); Bilirubin,Total 0.4 mg/dL (0.2-1.3); Blood Urea Nitrogen 29 mg/dL (9-20); Carbon Dioxide 32 mmol/L (22-30); Chloride 101 mmol/L (98-107); Cholesterol 115 mg/dL (0-200); Estimated Glomerular Filt Rate 59; Glucose 176 mg/dL (65-110); HDL Direct 34 mg/dL; Potassium 4.3 mmol/L (3.4-5.0); Sodium 141 mmol/L (137-145); Triglycerides 195 mg/dL (<150)
[2021-08-08 11:53] LABS: Hemoglobin A1C 7.2 % (<5.7)
[2021-08-08 12:00] LABS: LDL Cholesterol Direct 42 mg/dL
[2021-08-08 12:17] LABS: Thyroid Stimulating Hormone 0.685 uIU/mL (0.465-4.680)
[2021-08-08 12:44] LABS: Microalbumin Urine Random 269.5 mg/L (0-16.7)
[2021-08-08 12:46] LABS: Free T4 Free Thyroxine 1.09 ng/mL (0.78-2.19)
== END 2021-08-08 10:16 | disposition home or self-care (01) ==
LOC: ANHLAB 10:17
PROVIDERS: PCP Family Medicine; Visit Provider Internal Medicine Endocrinology, Diabetes & Metabolism
DX: E11.65 Type 2 diabetes mellitus with hyperglycemia (principal); E78.2 Mixed hyperlipidemia
CPT/HCPCS: 36415; 80053; 80061; 82043; 83036; 84439; 84443

== ENCOUNTER 2021-12-22 11:34 | Outpatient (CLI) | payer OTHER, SELFPAY ==
[2021-12-22 12:42] LABS: Alanine Aminotransferase 46 U/L (6-50); Albumin Level 4.3 g/dL (3.5-5.1); Alkaline Phosphatase 113 U/L (38-126); Anion Gap 8 mmol/L (8-16); Aspartate Amino Transferase 38 U/L (17-59); Bilirubin,Total 0.4 mg/dL (0.2-1.3); Blood Urea Nitrogen 19 mg/dL (9-20); Calcium 9.3 mg/dL (8.4-10.2); Carbon Dioxide 30 mmol/L (22-30); Chloride 101 mmol/L (98-107); Cholesterol 136 mg/dL (0-200); Estimated Glomerular Filt Rate > 60; Glucose 269 mg/dL (65-110); HDL Direct 40 mg/dL; Potassium 4.9 mmol/L (3.4-5.0); Sodium 139 mmol/L (137-145); Triglycerides 209 mg/dL (<150)
[2021-12-22 12:51] LABS: Hemoglobin A1C 9.2 % (<5.7)
[2021-12-22 12:53] LABS: LDL Cholesterol Direct 58 mg/dL
[2021-12-22 13:19] LABS: Free T4 Free Thyroxine 0.99 ng/mL (0.78-2.19)
[2021-12-22 13:23] LABS: Creatinine Urine 139.5 mg/dL
[2021-12-23 15:02] LABS: MALB Creatinine Ratio 472.2 mg/g (0-30); Microalbumin Urine Random 658.7 mg/L (0-16.7)
== END 2021-12-22 11:35 | disposition home or self-care (01) ==
LOC: ANHLAB 11:36
PROVIDERS: PCP Family Medicine; Visit Provider Internal Medicine Endocrinology, Diabetes & Metabolism
DX: E78.2 Mixed hyperlipidemia (principal); E11.65 Type 2 diabetes mellitus with hyperglycemia
CPT/HCPCS: 36415; 80053; 80061; 82043; 83036; 84439; 84443

== ENCOUNTER 2022-04-19 08:04 | Outpatient (CLI) | payer OTHER, SELFPAY ==
--- NOTE | 2022-05-13 11:20 | WPDSLEEPSTUD ---
Sleep Study Date of Study: 04/19/22 Ordering Provider: Kaylynn Mcfarlane MD Interpreting Physician: Kaylynn Mcfarlane MD Sleep Study Type: BiPAP Titration Height: 1.75 m Weight: 136.078 kg Body Mass Index: 44.3 Neck Circumference (inches): 19 [place]: 8 Reason for Sleep Study * 11/07/2020 HSAT with apnea hypopnea index 3.1 with desaturation to 63% and severe snoring; central apneas were present * 05/01/2021 CPAP titration; acceptable pressures CPAP 16 with EPR 2, treatment induced central apneas were present Sleep History King Workman is a 46-year-old man with obstructive and central sleep apnea. His initial test was a home sleep test with severe hypoxemia. He had a PAP titration, had an acceptable pressure of CPAP 16 With EPR 2 cm. The plan was to recheck him in several months and if his apnea-hypopnea index remained elevated we would consider BiPAP with a backup rate or ASV titration. I saw him in the office Dec 17, 2021 with his . He was not responding to treatment, had Difficulties with air leak from the mask, compliance, continue to have symptoms. It was not clear with the main problem was. He returns at this time for a repeat titration. 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 His initial symptoms included loud snoring that frequently disturbed others. He had a diagnosis of obstructive sleep apnea over 20 years ago.? He frequently has trouble sleeping with a cold.? He does not awaken from sleep feeling short of breath.? He rarely and awakens at night with heartburn, belching or coughing.? He does not gasp for breath at night.? He occasionally has breathing problems at night observed by others and occasionally sweats excessively at night.? He occasionally notices his heart pounding or beating irregularly at night.? He occasionally falls asleep during the day but never falls asleep involuntarily or while driving.? He does not have daytime difficulties due to excessive sleepiness.? He occasionally feels paralyzed on waking but does not feel paralyzed on falling asleep.? He occasionally has vivid dreamlike scenes upon awakening or falling asleep.? He does not feel afraid to go to sleep.? He occasionally has nightmares.? He occasionally remembers his dreams.? He occasionally has racing thoughts.? He occasionally has feelings of sadness and depression.? He constantly has anxiety.? He occasionally has muscular tension and notices parts of his body jerking.? He does not kick at night.? He occasionally has crawling and aching feelings in his legs at night.? He frequently has leg pain during the night.? He does not have morning jaw pain and does not grind his teeth during sleep.? He frequently is bothered by pain during the day, occasionally awakened by pain at night and occasionally wakes up feeling stiff in the morning.? He constantly wakes up with sore achy muscles.? He does not wake up with pain in the neck and spine.? He sometimes has palpitations, nightmares, depression, fatigue and panic.? He sometimes has memory problems. Normal bedtime is between 1:00 a.m. and 2:00 a.m., taking a while to fall asleep typically waking 1 or 2 times at night to urinate and play a game on the phone.? It takes him sometimes up to 30 minutes or an hour to return to sleep.? He wakes up sometime between 8 and 10:00 a.m..? His weekend schedule is the same.? He estimates getting between 5 and 6 hours of sleep at night.? He sometimes takes naps.? A short nap may be refreshing.? He is usually drowsy all throughout the day.? He feels better in the afternoon compared to other times of day. Habits: ? Quit tobacco 3 years ago.? Caffeine 2 servings a day.? No alcohol or recreational drugs.? 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
[2022-05-13 13:51] VITALS: BMI 44.3
== END 2022-04-20 07:05 | disposition home or self-care (01) ==
LOC: ANHCSM 08:06
PROVIDERS: PCP Family Medicine; Visit Provider Internal Medicine Critical Care Medicine
DX: G47.33 Obstructive sleep apnea (adult) (pediatric) (principal); G47.39 Other sleep apnea
CPT/HCPCS: 95811

== ENCOUNTER 2022-06-15 10:17 | Outpatient (CLI) | payer OTHER, SELFPAY ==
[2022-06-15 11:53] LABS: Alanine Aminotransferase 39 U/L (6-50); Albumin Level 4.2 g/dL (3.5-5.1); Alkaline Phosphatase 113 U/L (38-126); Anion Gap 8 mmol/L (8-16); Aspartate Amino Transferase 28 U/L (17-59); Bilirubin,Total 0.4 mg/dL (0.2-1.3); Blood Urea Nitrogen 26 mg/dL (9-20); Carbon Dioxide 31 mmol/L (22-30); Chloride 100 mmol/L (98-107); Cholesterol 169 mg/dL (0-200); Estimated Glomerular Filt Rate > 60; Glucose 193 mg/dL (65-110); HDL Direct 38 mg/dL; Potassium 4.5 mmol/L (3.4-5.0); Sodium 139 mmol/L (137-145); Triglycerides 219 mg/dL (<150)
[2022-06-15 11:54] LABS: Hemoglobin A1C 7.1 % (<5.7)
[2022-06-15 12:05] LABS: LDL Cholesterol Direct 86 mg/dL
[2022-06-15 12:24] LABS: Thyroid Stimulating Hormone 0.993 uIU/mL (0.465-4.680)
[2022-06-15 12:26] LABS: Free T4 Free Thyroxine 0.82 ng/mL (0.78-2.19)
[2022-06-15 13:29] LABS: MALB Creatinine Ratio 604.4 mg/g (0-30); Microalbumin Urine Random 622.5 mg/L (0-16.7)
== END 2022-06-15 10:18 | disposition home or self-care (01) ==
LOC: ANHLAB 10:19
PROVIDERS: PCP Family Medicine; Visit Provider Internal Medicine Endocrinology, Diabetes & Metabolism
DX: E11.65 Type 2 diabetes mellitus with hyperglycemia (principal); E78.2 Mixed hyperlipidemia
CPT/HCPCS: 36415; 80053; 80061; 82043; 83036; 84439; 84443

== ENCOUNTER 2022-09-27 08:15 | Outpatient (CLI) | payer OTHER, SELFPAY ==
[2022-09-27 08:53] LABS: Hemoglobin A1C 8.4 % (<5.7)
[2022-09-27 08:55] LABS: Alanine Aminotransferase 47 U/L (6-50); Albumin Level 4.1 g/dL (3.5-5.1); Alkaline Phosphatase 104 U/L (38-126); Anion Gap 5 mmol/L (8-16); Aspartate Amino Transferase 31 U/L (17-59); Bilirubin,Total 0.4 mg/dL (0.2-1.3); Blood Urea Nitrogen 24 mg/dL (9-20); Calcium 9.2 mg/dL (8.4-10.2); Carbon Dioxide 37 mmol/L (22-30); Chloride 99 mmol/L (98-107); Cholesterol 118 mg/dL (0-200); Estimated Glomerular Filt Rate > 60; Glucose 177 mg/dL (65-110); HDL Direct 34 mg/dL; Potassium 4.3 mmol/L (3.4-5.0); Sodium 141 mmol/L (137-145); Triglycerides 157 mg/dL (<150)
[2022-09-27 09:05] LABS: LDL Cholesterol Direct 51 mg/dL
[2022-09-27 09:09] LABS: Creatinine Urine 61.1 mg/dL
[2022-09-27 09:11] LABS: Free T4 Free Thyroxine 1.05 ng/mL (0.78-2.19)
[2022-09-27 09:29] LABS: MALB Creatinine Ratio 457.6 mg/g (0-30); Microalbumin Urine Random 279.6 mg/L (0-16.7)
== END 2022-09-27 08:16 | disposition home or self-care (01) ==
LOC: ANHLAB 08:20
PROVIDERS: PCP Family Medicine; Visit Provider Internal Medicine Endocrinology, Diabetes & Metabolism
DX: R80.9 Proteinuria, unspecified (principal); E11.9 Type 2 diabetes mellitus without complications
CPT/HCPCS: 36415; 80053; 80061; 82043; 83036; 84439; 84443